=== PATIENT | female | born 1980 | race Caucasian/White ===

== ENCOUNTER 2022-03-18 12:23 | Emergency (ER) | payer MEDICAID ==
[~2022-03-18] VITALS: Ht 160 cm; Wt 63.6 kg
[2022-03-18 12:38] VITALS: BP 117/62
[2022-03-18] MEDS ORDERED: NAPR-56 PO (13:46)
[2022-03-18] MEDS ORDERED: CYCL-1 PO (13:46)
== END 2022-03-18 14:06 | disposition home or self-care (01) ==
LOC: ER 12:24
DX: M54.12 Radiculopathy, cervical region (principal); M25.511 Pain in right shoulder; M25.512 Pain in left shoulder; M19.90 Unspecified osteoarthritis, unspecified site; F17.200 Nicotine dependence, unspecified, uncomplicated; Z86.73 Personal history of transient ischemic attack (TIA), and cerebral infarction without residual deficits; Z79.899 Other long term (current) drug therapy
CPT/HCPCS: 72040; 99283